=== PATIENT | female | born 1945 | race American Indian/Alaskan Native ===

== ENCOUNTER 2017-04-01 10:03 | Outpatient (CLI) | payer MEDICARE ==
--- NOTE | 2017-04-01 14:48 | Magnetic Resonance Report ---
MRI of brain: History: CVA. Technique: Multiplanar, multisequence images were obtained without contrast injection. Findings: 2 mm focal area of restricted diffusion noted in the anterior right basal ganglia with corresponding ADC findings suggestive acute/subacute ischemia. Posteriorly at the right basal ganglia chronic ischemic lacunar changes are noted. Chronic ischemic changes also noted in the left posterior temporal region. Periventricular areas of hyperintensity suggestive of small vessel ischemic changes. Small focus of Chronic ischemia midbrain. Impression: Small acute/subacute ischemic focus at right anterior basal ganglia. Additional findings as detailed above.
--- NOTE | 2017-04-01 14:52 | Magnetic Resonance Report ---
MRA of the brain: History: CVA. Technique: 3-D images obtained the post processing. Findings: The vessels of [place] appear widely patent. No evidence of aneurysm stenoses or dissection noted. No vascular malformation. There is occlusion or severe stenosis of 1 cm length left vertebral artery and the basilar artery appears unremarkable. noted of the right vertebral artery distal to the basilar artery.
--- NOTE | 2017-04-02 10:34 | Magnetic Resonance Report ---
MRA NECK WITHOUT CONTRAST: 04/01/17 11:00:00 CLINICAL: Stroke. COMPARISON:None. TECHNIQUE: Axial 3-D [id number] MR angiography with review of axial source images on a 1.5 Dionna magnet. FINDINGS: The bilateral common and internal carotid arteries are very tortuous but appear otherwise intact. Bilateral vertebral arteries are intact. The left vertebral artery is dominant. No high-grade stenoses or occlusions are detected. IMPRESSION: Extremely tortuous carotid arteries with no high grade stenosis or occlusion identified.
== END 2017-04-01 10:04 | disposition home or self-care (01) ==
LOC: MRI 10:03
PROVIDERS: ATTEND Psychiatry & Neurology Neurology
DX: I65.22 Occlusion and stenosis of left carotid artery (principal); I63.9 Cerebral infarction, unspecified; I77.1 Stricture of artery; I10 Essential (primary) hypertension; E78.00 Pure hypercholesterolemia, unspecified
CPT/HCPCS: 70544; 70547; 70551

== ENCOUNTER 2017-04-12 17:20 | Inpatient (IN) | payer MEDICARE ==
[2017-04-12] MEDS ORDERED: APRESOLINE ONE ×2 (18:37→22:34)
[2017-04-12] MEDS ORDERED: APRESOLINE IV ONE (18:41)
[2017-04-12 18:49] LABS: Hematocrit 34.4 % (30.3-42.9); Hemoglobin 11.6 gm/dl (10.1-14.3); Mean Corpuscular HGB Conc 34 % (30-34); Mean Corpuscular Hemoglobin 29 pg (28-32); Mean Corpuscular Volume 87 fl (79-97); Red Blood Count 3.94 M/mm3 (3.65-5.03); Red Cell Distribution Width 15.7 % (13.2-15.2)
[2017-04-12 18:50] LABS: Platelet Count 199 K/mm3 (140-440); White Blood Count 11.5 K/mm3 (4.5-11.0)
[2017-04-12 18:52] LABS: INR 0.94 (0.87-1.13); Partial Thromboplastin Time 24.6 Sec. (24.2-36.6)
[2017-04-12 19:29] LABS: Anion Gap 22 mmol/L; BUN/Creatinine Ratio 11.72; Blood Urea Nitrogen 34 mg/dL (7-17); Calcium 9.2 mg/dL (8.4-10.2); Carbon Dioxide 22 mmol/L (22-30); Chloride 99.5 mmol/L (98-107); Glucose 91 mg/dL (65-100); Potassium 4.2 mmol/L (3.6-5.0); Sodium 139 mmol/L (137-145)
--- NOTE | 2017-04-12 19:29 | Cat Scan Report ---
FINAL REPORT EXAM: CT HEAD/BRAIN WO CON HISTORY: neuro deficits \T\lt; 6hrs or sx present upon awakening TECHNIQUE: Standard unenhanced CT of the head at 5.0 millimeter axial increments PRIORS: None. FINDINGS: The ventricular system is normal in size and configuration. Low-density in the periventricular white matter is noted bilaterally. Several focal remote infarcts are present in the left parietal occipital junction, the left caudate nucleus, and the bilateral basal ganglia. There is no evidence for mass lesion, mass effect, midline shift, acute intracranial hemorrhage, or acute ischemia/ infarction. Visualized paranasal sinuses demonstrate air-fluid level in the sphenoid sinuses. IMPRESSION: No acute intracranial process noted. Evidence for small vessel ischemic changes and small remote infarcts bilaterally.
[2017-04-12 19:38] LABS: Basophils % (Manual) 0 % (0.0-1.8); Blastocytes % (Manual) 0 %
[2017-04-12 19:39] LABS: Anisocytosis 1+; Platelet Clumps 1+; Poikilocytosis 1+
[2017-04-12 19:40] LABS: Diff Status Complete; Platelet Estimate Consistent w Auto
[2017-04-12] MEDS ORDERED: PLAVIX PO ONE (20:34)
--- NOTE | 2017-04-12 20:39 | Emergency Department Report ---
HPI - General Chief Complaint: Neuro Symptoms/Deficit Time Seen by Provider: 04/12/17 20:24 - HPI HPI: Room 24 The patient is a 72-year-old female presenting with a chief complaint of numbness and right looks really weakness. The patient states that approximately 13:30 this afternoon she noticed numbness to the right side of her face and lips. The patient states she then went to sleep and awakened at approximately 15:002 noticed right lower extremity weakness. The patient states she needed family members and had to hold the wall in order to ambulate secondary to this right location and weakness. Sensation states she noticed some dysarthria earlier but it has improved. Patient also complained of numbness in the fingers of the right hand. Patient denies any upper extremity weakness. The patient states she was diagnosed with a TIA beginning of this month and had an outpatient workup which included an MRI and MRA Location: [see above] Duration: [see above] Quality: Numbness, weakness Severity: Moderate Modifying factors: [see above] Context: [see above] Mode of transportation: [not driving] ED Past Medical Hx - Past Medical History Previous Medical History?: Yes Hx Hypertension: Yes Hx Diabetes: Yes (NIDDM) Hx Renal Disease: Yes (chronic renal insufficiency) Additional medical history: TIA beginning of 2016 - Surgical History Past Surgical History?: Yes Additional Surgical History: x 3. left ankle. tonsillectomy - Family History Family history: no significant - Social History Smoking Status: Never Smoker Substance Use Type: None - Medications Home Medications: Home Medications Medication Instructions Recorded Confirmed Last Taken Type Clonidine HCl [Clonidine HCl] 0.2 mg PO BID 02/14/14 04/12/17 02/14/14 07:40 History Carvedilol [Coreg] 6.25 mg PO BID 04/12/17 04/12/17 Unknown History Furosemide [Lasix TAB] 40 mg PO QDAY 04/12/17 04/12/17 Unknown History Simvastatin [Zocor TAB] 40 mg PO QHS 04/12/17 04/12/17 Unknown History glipiZIDE [Glucotrol] 5 mg PO BID 04/12/17 04/12/17 Unknown History ED Review of Systems ROS: Stated complaint: RIGHT SIDED WEAKNESS Other details as noted in HPI Comment: All other systems reviewed and negative Constitutional: denies: chills, fever Eyes: denies: eye pain, eye discharge, vision change ENT: denies: ear pain, throat pain Respiratory: denies: cough, shortness of breath, wheezing Cardiovascular: denies: chest pain, palpitations Endocrine: no symptoms reported Gastrointestinal: denies: abdominal pain, nausea, diarrhea Genitourinary: denies: urgency, dysuria, discharge Musculoskeletal: denies: back pain, joint swelling, arthralgia Skin: denies: rash, lesions Neurological: weakness, numbness, abnormal gait. denies: headache Psychiatric: denies: anxiety, depression Hematological/Lymphatic: denies: easy bleeding, easy bruising Physical Exam - Physical Exam Vital Signs: Vital Signs 04/12/17 04/12/17 04/12/17 17:32 18:14 18:38 Pulse Rate 66 60 66 Respiratory 16 16 16 Rate Blood Pressure 200/110 220/116 Blood Pressure 204/105 [Right] O2 Sat by Pulse 98 100 100 Oximetry 04/12/17 04/12/17 04/12/17 18:56 19:00 19:16 Pulse Rate 79 75 74 Respiratory 14 23 24 Rate Blood Pressure 184/90 167/80 Blood Pressure 184/90 [Right] O2 Sat by Pulse 96 97 97 Oximetry 04/12/17 04/12/17 04/12/17 19:30 19:46 20:00 Pulse Rate 77 70 81 Respiratory 17 18 14 Rate Blood Pressure 167/80 166/88 220/116 Blood Pressure [Right] O2 Sat by Pulse 98 98 98 Oximetry 04/12/17 04/12/17 20:16 20:32 Pulse Rate 70 83 Respiratory 20 Rate Blood Pressure 166/88 Blood Pressure [Right] O2 Sat by Pulse 98 Oximetry Physical Exam: GENERAL: The patient is well-developed well-nourished female lying on stretcher not appearing to be in acute distress. [] HEENT: Normocephalic. Atraumatic. Extraocular motions are intact. Patient has moist mucous membranes. NECK: Supple. Trachea midline CHEST/LUNGS: There is no respiratory distress noted. HEART/CARDIOVASCULAR: Regular. There is no tachycardia. There is no gallop rub or murmur. ABDOMEN: Abdomen is soft, nontender. Patient has normal bowel sounds. There is no abdominal distention. SKIN: There is no rash. There is no edema. There is no diaphoresis. NEURO: The patient is awake, alert, and oriented. The patient is cooperative. Cranial nerves II through XII grossly intact with exception of decreased sensation on the right face in the V2, V3 distribution. Loans Consultant equal bilaterally , no pronator drift. Normal sensation bilateral lower extremities. Moves all extremities well. The patient has normal speech MUSCULOSKELETAL: There is no evidence of acute injury. ED Course Vital Signs 04/12/17 04/12/17 04/12/17 17:32 18:14 18:38 Pulse Rate 66 60 66 Respiratory 16 16 16 Rate Blood Pressure 200/110 220/116 Blood Pressure 204/105 [Right] O2 Sat by Pulse 98 100 100 Oximetry 04/12/17 04/12/17 04/12/17 18:56 19:00 19:16 Pulse Rate 79 75 74 Respiratory 14 23 24 Rate Blood Pressure 184/90 167/80 Blood Pressure 184/90 [Right] O2 Sat by Pulse 96 97 97 Oximetry 04/12/17 04/12/17 04/12/17 19:30 19:46 20:00 Pulse Rate 77 70 81 Respiratory 17 18 14 Rate Blood Pressure 167/80 166/88 220/116 Blood Pressure [Right] O2 Sat by Pulse 98 98 98 Oximetry 04/12/17 04/12/17 20:16 20:32 Pulse Rate 70 83 Respiratory 20 Rate Blood Pressure 166/88 Blood Pressure [Right] O2 Sat by Pulse 98 Oximetry ED Medical Decision Making - Lab Data Result diagrams: 04/12/17 18:23 04/12/17 18:23 Laboratory Tests 04/12/17 04/12/17 04/12/17 18:21 18:23 18:23 WBC 11.5 H RBC 3.94 Hgb 11.6 Hct 34.4 MCV 87 MCH 29 MCHC 34 RDW 15.7 H Plt Count 199 Add Manual Diff Complete Total Counted 100 Seg Neuts % (Manual) 60.0 Band Neutrophils % 0 Lymphocytes % (Manual) 34.0 Reactive Lymphs % (Man) 0 Monocytes % (Manual) 5.0 Eosinophils % (Manual) 1.0 Basophils % (Manual) 0 Metamyelocytes % 0 Myelocytes % 0 Promyelocytes % 0 Blast Cells % 0 Nucleated RBC % Not Reportable Seg Neutrophils # Man 6.9 Band Neutrophils # 0.0 Lymphocytes # (Manual) 3.9 Abs React Lymphs (Man) 0.0 Monocytes # (Manual) 0.6 Eosinophils # (Manual) 0.1 Basophils # (Manual) 0.0 Metamyelocytes # 0.0 Myelocytes # 0.0 Promyelocytes # 0.0 Blast Cells # 0.0 WBC Morphology Not Reportable Hypersegmented Neuts Not Reportable Hyposegmented Neuts Not Reportable Hypogranular Neuts Not Reportable Smudge Cells Not Reportable Toxic Granulation Not Reportable Toxic Vacuolation Not Reportable Dohle Bodies Not Reportable Pelger-Huet Anomaly Not Reportable Ralph Rods Not Reportable Platelet Estimate Consistent w auto Clumped Platelets 1+ Plt Clumps, EDTA Not Reportable Large Platelets Not Reportable Giant Platelets Not Reportable Platelet Satelliting Not Reportable Plt Morphology Comment Not Reportable RBC Morphology Not Reportable Dimorphic RBCs Not Reportable Polychromasia Not Reportable Hypochromasia Not Reportable Poikilocytosis 1+ Anisocytosis 1+ Microcytosis Not Reportable Macrocytosis Not Reportable Spherocytes Not Reportable Pappenheimer Bodies Not Reportable Sickle Cells Not Reportable Target Cells Not Reportable Tear Drop Cells Not Reportable Ovalocytes Not Reportable Helmet Cells Not Reportable Muniz-Homeworth Bodies Not Reportable [place] Rings Not Reportable [place] Cells Not Reportable Bite Cells Not Reportable Crenated Cell Not Reportable Elliptocytes Not Reportable Acanthocytes (Spur) Not Reportable Rouleaux Not Reportable Hemoglobin C Crystals Not Reportable Schistocytes Not Reportable Malaria parasites Not Reportable Zheng Bodies Not Reportable Hem Pathologist Commnt No PT 12.5 INR 0.94 APTT 24.6 Thrombin Time Sodium Potassium Chloride Carbon Dioxide Anion Gap BUN Creatinine Estimated GFR BUN/Creatinine Ratio Glucose POC Glucose 101 Calcium Troponin T 04/12/17 04/12/17 04/12/17 18:23 18:23 20:18 WBC RBC Hgb Hct MCV MCH MCHC RDW Plt Count Add Manual Diff Total Counted Seg Neuts % (Manual) Band Neutrophils % Lymphocytes % (Manual) Reactive Lymphs % (Man) Monocytes % (Manual) Eosinophils % (Manual) Basophils % (Manual) Metamyelocytes % Myelocytes % Promyelocytes % Blast Cells % Nucleated RBC % Seg Neutrophils # Man Band Neutrophils # Lymphocytes # (Manual) Abs React Lymphs (Man) Monocytes # (Manual) Eosinophils # (Manual) Basophils # (Manual) Metamyelocytes # Myelocytes # Promyelocytes # Blast Cells # WBC Morphology Hypersegmented Neuts Hyposegmented Neuts Hypogranular Neuts Smudge Cells Toxic Granulation Toxic Vacuolation Dohle Bodies Pelger-Huet Anomaly Ralph Rods Platelet Estimate Clumped Platelets Plt Clumps, EDTA Large Platelets Giant Platelets Platelet Satelliting Plt Morphology Comment RBC Morphology Dimorphic RBCs Polychromasia Hypochromasia Poikilocytosis Anisocytosis Microcytosis Macrocytosis Spherocytes Pappenheimer Bodies Sickle Cells Target Cells Tear Drop Cells Ovalocytes Helmet Cells Muniz-Homeworth Bodies [place] Rings [place] Cells Bite Cells Crenated Cell Elliptocytes Acanthocytes (Spur) Rouleaux Hemoglobin C Crystals Schistocytes Malaria parasites Zheng Bodies Hem Pathologist Commnt PT INR APTT Thrombin Time 17.1 Sodium 139 Potassium 4.2 Chloride 99.5 Carbon Dioxide 22 Anion Gap 22 BUN 34 H Creatinine 2.9 H Estimated GFR 19 BUN/Creatinine Ratio 11.72 Glucose 91 POC Glucose 99 Calcium 9.2 Troponin T < 0.010 - EKG Data -: EKG Interpreted by Me EKG shows normal: sinus rhythm Rate: bradycardia (55 bpm) - EKG Data When compared to previous EKG there are: previous EKG unavailable Interpretation: nonspecific ST-T wave rubi (T-wave inversion in leads 1, aVL, V4 , V5, V6) - Differential Diagnosis TIA, CVA Critical care attestation.: If time is entered above; I have spent that time in minutes in the direct care of this critically ill patient, excluding procedure time. ED Disposition Clinical Impression: Right facial numbness, TIA (transient ischemic attack), Renal insufficiency Disposition: DC09 OP ADMIT IP TO THIS HOSP Is pt being admited?: Yes Does the pt Need Aspirin: No (renal insufficiency) Condition: Stable Referrals: PRIMARY CARE, [Primary Care Provider] - 3-5 Days Time of Disposition: 20:40 (hospitalist paged)
[2017-04-12] MEDS ORDERED: TYLENOL PO PRN (22:08)
[2017-04-12] MEDS ORDERED: SODIUM CHLORIDE FLUSH SYRINGE 10 ML IV PRN (22:08)
[2017-04-12] MEDS ORDERED: DULCOLAX PR PRN (22:08)
[2017-04-12] MEDS ORDERED: ZOFRAN IV PRN (22:08)
[2017-04-12] MEDS ORDERED: MILK OF MAGNESIA PO PRN (22:08)
--- NOTE | 2017-04-12 22:33 | History and Physical Report ---
History of Present Illness Date of examination: 04/12/17 History of present illness: 72 year old woman with history of hypertension, diabetes, hyperlipidemia, same emergency room with complaints that the right side of the face was numb and her leg felt weak. Patient experienced dysarthria 2 weeks ago, she saw a neurologist who initiated a stroke workup, she obtain a MRI and MRA of the head and neck today which showed an acute versus subacute CVA. Patient states that her speech is improving Review Of Systems: Constitutional: no weight loss Ears, eyes, nose, mouth and throat: no nasal congestion, no nasal discharge, no sinus pressure, blurry vision, diplopia Neck: No neck pain or rigidity. Cardiovascular: chest pain, orthopnea, palpitations Respiratory: No shortness of breath, cough Gastrointestinal: abdominal pain, hematochezia Genitourinary : no dysuria, frequency , hematuria Musculoskeletal: no muscle ache Integumentary: no rash, no pruritis Neurological: + parathesias Endocrine: no cold or heat intolerance, no polyuria or polydipsia Hematologic/Lymphatic: no easy bruising, no easy bleeding, no gland swelling Allergic/Immunologic: no urticaria, no angioedema. PAST MEDICAL HISTORY:hypertension, diabetes, renal insufficiency, hyperlipidemia PAST SURGICAL HISTORY: 3, ankle, tonsillectomy FAMILY HISTORY:hypertension SOCIAL HISTORY: Denies alcohol, tobacco, drug Medications and Allergies Allergies Allergy/AdvReac Type Severity Reaction Status Date / Time No Known Allergies Allergy Verified 06/03/13 15:16 Home Medications Medication Instructions Recorded Confirmed Last Taken Type Clonidine HCl 0.2 mg PO BID 02/14/14 04/12/17 02/14/14 07:40 History Carvedilol [Coreg] 6.25 mg PO BID 04/12/17 04/12/17 Unknown History Furosemide [Lasix TAB] 40 mg PO QDAY 04/12/17 04/12/17 Unknown History glipiZIDE [Glucotrol] 5 mg PO BID 04/12/17 04/12/17 Unknown History Clopidogrel [Plavix] 75 mg PO QDAY #30 tablet 04/16/17 Unknown Rx Simvastatin [Zocor TAB] 40 mg PO QHS #30 tablet 04/16/17 Unknown Rx hydrALAZINE [Apresoline TAB] 50 mg PO Q8HR #90 tablet 04/16/17 Unknown Rx Active Meds: Active Medications Acetaminophen (Tylenol) 650 mg PO Q4H PRN PRN Reason: Pain, Mild (1-3) Bisacodyl (Dulcolax) 10 mg NE QDAY PRN PRN Reason: Constipation Enoxaparin Sodium (Lovenox) 30 mg SUB-Q QDAY ELIDA Hydralazine HCl (Apresoline) 5 mg IV Q6H PRN PRN Reason: Keep SBP between 160-185 mm Hg Magnesium Hydroxide (Milk Of Magnesia) 30 ml PO Q4H PRN PRN Reason: Constipation Ondansetron HCl (Zofran) 4 mg IV Q8H PRN PRN Reason: N/V unrelieved by Reglan Simvastatin (Zocor) 20 mg PO QHS ELIDA Sodium Chloride (Sodium Chloride Flush Syringe 10 Ml) 10 ml IV PRN PRN PRN Reason: LINE FLUSH Exam - Physical Exam Narrative exam: Gen. appearance: Patient lying in bed in no acute distress HEENT: Normocephalic/atraumatic, pupils equal round reactive to light, extra alkaline movement intact, no scleral icterus, no JVD or thyromegaly or nodule, neck is supple, mucous membrane moist, no erythema or exudate Heart: S1-S2, regular rate and rhythm Lungs: Clear to auscultation bilateral breathing comfortable Abdomen: Positive bowel sounds, nontender, nondistended, no organomegaly Extremities: No edema, cyanosis, clubbing Neuro:: Oriented 3 , cranial nerves II-12 intact, speech slurred, left lower extremity 4/5 Skin: No rash, nodules, warm dry - Constitutional Vitals: Temp Pulse Resp BP Pulse Ox 68 15 222/111 98 04/12/17 21:16 04/12/17 21:16 04/12/17 21:16 04/12/17 21:16 Results - Labs CBC & Chem 7: 04/16/17 04:12 04/16/17 04:12 Labs: Abnormal lab results 04/12/17 04/12/17 Range/Units 18:23 18:23 WBC 11.5 H (4.5-11.0) K/mm3 RDW 15.7 H (13.2-15.2) % BUN 34 H (7-17) mg/dL Creatinine 2.9 H (0.7-1.2) mg/dL - Imaging and Cardiology MRI - head: report reviewed Assessment and Plan MRA/MRI HEAD reviwed Assessment Stroke in evolution Hypertension Diabetes type 2 kidney disease, ? acute Hyperlipidemia Plan Admit to medicine Obtain echocardiogram, consult neurology Due to swallow screen, neurochecks Start Plavix, continue statin IV hydralazine for blood pressure control Start IV fluids, monitor kidney function Check fingersticks and initiate insulin sliding scale Consult physical, occupational and speech therapy DVT prophylaxis
[2017-04-12] MEDS: APRESOLINE IV PRN (22:37)
[2017-04-13] MEDS: NACL 0.45% 1000 ML 1,000 ML IV SCH ×2 (03:30→17:35)
[2017-04-13] MEDS: APRESOLINE IV PRN ×2 (05:10→09:00)
[2017-04-13] MEDS: LOVENOX SUB-Q SCH (09:01)
[2017-04-13] MEDS: PLAVIX PO SCH (09:01)
--- NOTE | 2017-04-13 10:55 | Consultation ---
History of Present Illness - Reason for Consult Consult date: 04/13/17 stroke - History of Present Illness see the extensive dictated note on this patient... she has had multiple strokes a/w lacunae in past and has HTN / Diabetes and moderate renal failure advise lower cholesterol / Tx HTN take ASA MRI etc pending Thanks Medications and Allergies Allergies Allergy/AdvReac Type Severity Reaction Status Date / Time No Known Allergies Allergy Verified 06/03/13 15:16 Home Medications Medication Instructions Recorded Confirmed Last Taken Type Clonidine HCl [Clonidine HCl] 0.2 mg PO BID 02/14/14 04/12/17 02/14/14 07:40 History Carvedilol [Coreg] 6.25 mg PO BID 04/12/17 04/12/17 Unknown History Furosemide [Lasix TAB] 40 mg PO QDAY 04/12/17 04/12/17 Unknown History Simvastatin [Zocor TAB] 40 mg PO QHS 04/12/17 04/12/17 Unknown History glipiZIDE [Glucotrol] 5 mg PO BID 04/12/17 04/12/17 Unknown History Active Meds: Active Medications Acetaminophen (Tylenol) 650 mg PO Q4H PRN PRN Reason: Pain, Mild (1-3) Bisacodyl (Dulcolax) 10 mg [place] QDAY PRN PRN Reason: Constipation Carvedilol (Coreg) 6.25 mg PO BID [facility] Clonidine HCl (Catapres) 0.2 mg PO BID [facility] Clopidogrel Bisulfate (Plavix) 75 mg PO QDAY [facility] Last Admin: 04/13/17 09:01 Dose: 75 mg Enoxaparin Sodium (Lovenox) 30 mg SUB-Q QDAY [facility] Last Admin: 04/13/17 09:01 Dose: 30 mg Furosemide (Lasix) 40 mg PO QDAY ELIDA Glipizide (Glucotrol) 5 mg PO BID ELIDA Hydralazine HCl (Apresoline) 5 mg IV Q6H PRN PRN Reason: Keep SBP between 160-185 mm Hg Last Admin: 04/13/17 05:10 Dose: 5 mg Sodium Chloride (Nacl 0.45% 1000 Ml) 1,000 mls @ 75 mls/hr IV DIRECT [facility] Last Admin: 04/13/17 03:30 Dose: 75 mls/hr Influenza Virus Vaccine Quadrival (Fluarix Quad [id number](36 Mos+)) 0.5 ml IM .ONCE ONE Stop: 04/13/17 12:01 Magnesium Hydroxide (Milk Of Magnesia) 30 ml PO Q4H PRN PRN Reason: Constipation Ondansetron HCl (Zofran) 4 mg IV Q8H PRN PRN Reason: N/V unrelieved by Reglan Pneumococcal Polyvalent Vaccine (Pneumovax 23) 0.5 ml IM .ONCE ONE Stop: 04/13/17 12:01 Simvastatin (Zocor) 20 mg PO QHS ELIDA Sodium Chloride (Sodium Chloride Flush Syringe 10 Ml) 10 ml IV PRN PRN PRN Reason: LINE FLUSH Exam - Constitutional Vitals: Temp Pulse Resp BP Pulse Ox 97.7 F 78 20 222/111 99 04/13/17 08:26 04/13/17 08:26 04/13/17 08:26 04/13/17 08:26 04/13/17 10:05 Results - Labs CBC & Chem 7: 04/12/17 18:23 04/12/17 18:23 Labs: Abnormal lab results 04/13/17 Range/Units 05:37 HDL Cholesterol 60 H (40-59) mg/dL
[2017-04-13] MEDS: CATAPRES PO SCH ×2 (11:36→22:03)
[2017-04-13] MEDS: COREG PO SCH ×2 (11:36→22:06)
[2017-04-13] MEDS: LASIX PO SCH (11:37)
[2017-04-13] MEDS: GLUCOTROL PO SCH ×2 (11:37→22:03)
[2017-04-13] MEDS ORDERED: Fluarix Quad 2017-2018(36 MOS+) IM ONE (12:00)
[2017-04-13] MEDS ORDERED: PNEUMOVAX 23 IM ONE (12:00)
--- NOTE | 2017-04-13 19:23 | Progress Note ---
Assessment and Plan Assessment and plan: --Acute CVA; with left-sided weakness Not a candidate for TPA Aspirin, statin, supportive care, neurology evaluation Physical therapy occupational therapy, rehabilitation, speech therapy --Hypertension; closely monitor Maintain systolic blood pressures per stroke protocol When necessary medications --Acute versus acute on chronic kidney disease No previous creatinine level available, gentle hydration, close to monitor renal function, avoid nephrotoxic medications Consider nephrology evaluation if needed --Dyslipidemia; lipid-lowering medications. Low-cholesterol diet --Mild dysphagia, therapist recommended soft diet advised modified barium swallow a.m. --Normoactive prophylaxis with Lovenox --Discharge planning per case management, possible home with home health versus placement Closely monitor the patient and adjust management as needed Plan of care discussed with the patient and her nurse History Interval history: Patient seen and examined this morning, medical records reviewed Admitted with acute CVA, on stroke protocol The patient feels slightly better Speech therapist has evaluated the patient Patient has no new complaints Hospitalist Physical - Constitutional Vitals: Temp Pulse Resp BP Pulse Ox 98.5 F 65 20 154/68 99 04/13/17 18:03 04/13/17 18:03 04/13/17 18:03 04/13/17 18:03 04/13/17 11:31 General appearance: Present: no acute distress, well-nourished - EENT Eyes: Present: PERRL, EOM intact - Neck Neck: Present: supple, normal ROM - Respiratory Respiratory effort: normal Respiratory: bilateral: diminished, negative: rales, rhonchi, wheezing - Cardiovascular Rhythm: regular Heart Sounds: Present: S1 & S2 - Extremities Extremities: no ischemia, No edema - Abdominal General gastrointestinal: soft, non-tender, non-distended, normal bowel sounds - Integumentary Integumentary: Present: clear, warm - Psychiatric Psychiatric: appropriate mood/affect, cooperative - Neurologic Neurologic: other (left-sided weakness) Results - Labs CBC & Chem 7: 04/12/17 18:23 04/12/17 18:23 Labs: Laboratory Last Values WBC 11.5 K/mm3 (4.5-11.0) H 04/12/17 18:23 RBC 3.94 M/mm3 (3.65-5.03) 04/12/17 18:23 Hgb 11.6 gm/dl (10.1-14.3) 04/12/17 18:23 Hct 34.4 % (30.3-42.9) 04/12/17 18:23 MCV 87 fl (79-97) 04/12/17 18:23 MCH 29 pg (28-32) 04/12/17 18:23 MCHC 34 % (30-34) 04/12/17 18:23 RDW 15.7 % (13.2-15.2) H 04/12/17 18:23 Plt Count 199 K/mm3 (140-440) 04/12/17 18:23 Add Manual Diff Complete 04/12/17 18:23 Total Counted 100 04/12/17 18:23 Seg Neuts % (Manual) 60.0 % (40.0-70.0) 04/12/17 18:23 Band Neutrophils % 0 % 04/12/17 18:23 Lymphocytes % (Manual) 34.0 % (13.4-35.0) 04/12/17 18:23 Reactive Lymphs % (Man) 0 % 04/12/17 18:23 Monocytes % (Manual) 5.0 % (0.0-7.3) 04/12/17 18:23 Eosinophils % (Manual) 1.0 % (0.0-4.3) 04/12/17 18:23 Basophils % (Manual) 0 % (0.0-1.8) 04/12/17 18:23 Metamyelocytes % 0 % 04/12/17 18:23 Myelocytes % 0 % 04/12/17 18:23 Promyelocytes % 0 % 04/12/17 18:23 Blast Cells % 0 % 04/12/17 18:23 Nucleated RBC % Not Reportable 04/12/17 18:23 Seg Neutrophils # Man 6.9 K/mm3 (1.8-7.7) 04/12/17 18:23 Band Neutrophils # 0.0 K/mm3 04/12/17 18:23 Lymphocytes # (Manual) 3.9 K/mm3 (1.2-5.4) 04/12/17 18:23 Abs React Lymphs (Man) 0.0 K/mm3 04/12/17 18:23 Monocytes # (Manual) 0.6 K/mm3 (0.0-0.8) 04/12/17 18:23 Eosinophils # (Manual) 0.1 K/mm3 (0.0-0.4) 04/12/17 18:23 Basophils # (Manual) 0.0 K/mm3 (0.0-0.1) 04/12/17 18:23 Metamyelocytes # 0.0 K/mm3 04/12/17 18:23 Myelocytes # 0.0 K/mm3 04/12/17 18:23 Promyelocytes # 0.0 K/mm3 04/12/17 18:23 Blast Cells # 0.0 K/mm3 04/12/17 18:23 WBC Morphology Not Reportable 04/12/17 18:23 Hypersegmented Neuts Not Reportable 04/12/17 18:23 Hyposegmented Neuts Not Reportable 04/12/17 18:23 Hypogranular Neuts Not Reportable 04/12/17 18:23 Smudge Cells Not Reportable 04/12/17 18:23 Toxic Granulation Not Reportable 04/12/17 18:23 Toxic Vacuolation Not Reportable 04/12/17 18:23 Dohle Bodies Not Reportable 04/12/17 18:23 Pelger-Huet Anomaly Not Reportable 04/12/17 18:23 Ralph Rods Not Reportable 04/12/17 18:23 Platelet Estimate Consistent w auto 04/12/17 18:23 Clumped Platelets 1+ 04/12/17 18:23 Plt Clumps, EDTA Not Reportable 04/12/17 18:23 Large Platelets Not Reportable 04/12/17 18:23 Giant Platelets Not Reportable 04/12/17 18:23 Platelet Satelliting Not Reportable 04/12/17 18:23 Plt Morphology Comment Not Reportable 04/12/17 18:23 RBC Morphology Not Reportable 04/12/17 18:23 Dimorphic RBCs Not Reportable 04/12/17 18:23 Polychromasia Not Reportable 04/12/17 18:23 Hypochromasia Not Reportable 04/12/17 18:23 Poikilocytosis 1+ 04/12/17 18:23 Anisocytosis 1+ 04/12/17 18:23 Microcytosis Not Reportable 04/12/17 18:23 Macrocytosis Not Reportable 04/12/17 18:23 Spherocytes Not Reportable 04/12/17 18:23 Pappenheimer Bodies Not Reportable 04/12/17 18:23 Sickle Cells Not Reportable 04/12/17 18:23 Target Cells Not Reportable 04/12/17 18:23 Tear Drop Cells Not Reportable 04/12/17 18:23 Ovalocytes Not Reportable 04/12/17 18:23 Helmet Cells Not Reportable 04/12/17 18:23 [place] Bodies Not Reportable 04/12/17 18:23 [place] Rings Not Reportable 04/12/17 18:23 [place] Cells Not Reportable 04/12/17 18:23 Bite Cells Not Reportable 04/12/17 18:23 Crenated Cell Not Reportable 04/12/17 18:23 Elliptocytes Not Reportable 04/12/17 18:23 Acanthocytes (Spur) Not Reportable 04/12/17 18:23 Rouleaux Not Reportable 04/12/17 18:23 Hemoglobin C Crystals Not Reportable 04/12/17 18:23 Schistocytes Not Reportable 04/12/17 18:23 Malaria parasites Not Reportable 04/12/17 18:23 Zheng Bodies Not Reportable 04/12/17 18:23 Hem Pathologist Commnt No 04/12/17 18:23 PT 12.5 Sec. (12.2-14.9) 04/12/17 18:23 INR 0.94 (0.87-1.13) 04/12/17 18:23 APTT 24.6 Sec. (24.2-36.6) 04/12/17 18:23 Thrombin Time 17.1 Sec. (15.1-19.6) 04/12/17 18:23 Sodium 139 mmol/L (137-145) 04/12/17 18:23 Potassium 4.2 mmol/L (3.6-5.0) 04/12/17 18:23 Chloride 99.5 mmol/L (98-107) 04/12/17 18:23 Carbon Dioxide 22 mmol/L (22-30) 04/12/17 18:23 Anion Gap 22 mmol/L 04/12/17 18:23 BUN 34 mg/dL (7-17) H 04/12/17 18:23 Creatinine 2.9 mg/dL (0.7-1.2) H 04/12/17 18:23 Estimated GFR 19 ml/min 04/12/17 18:23 BUN/Creatinine Ratio 11.72 % 04/12/17 18:23 Glucose 91 mg/dL (65-100) 04/12/17 18:23 POC Glucose 99 (70-105) 04/12/17 20:18 Calcium 9.2 mg/dL (8.4-10.2) 04/12/17 18:23 Troponin T < 0.010 ng/mL (0.00-0.029) 04/12/17 18:23 Triglycerides 133 mg/dL (2-149) 04/13/17 05:37 Cholesterol 177 mg/dL (50-199) 04/13/17 05:37 LDL Cholesterol Direct 91 mg/dL (50-130) 04/13/17 05:37 HDL Cholesterol 60 mg/dL (40-59) H 04/13/17 05:37 Cholesterol/HDL Ratio 2.95 % 04/13/17 05:37
[2017-04-13] MEDS: ZOCOR PO SCH (22:06)
[2017-04-13] MEDS: NOVOLOG SUB-Q SCH (22:07)
--- NOTE | 2017-04-14 02:57 | Consultation ---
HISTORY OF PRESENT ILLNESS: This is a 72-year-old black female that is admitted to [facility], [place]. She was admitted via the Emergency Room for evaluation of right-sided weakness of the face and arm and slurring of speech. She according to her history has been under treatment for TIAs. She had a TIA about 2 weeks ago, talked to her veterinarian assistant and was being treated for history of renal insufficiency and also has independent risk factors of hypertension, diabetes and has been present since 1999 previously. The patient had difficulty with walking. Her face was numb. Her arm is numb. She denied having a headache. She got somewhat better, and subsequent to that, her blood pressure on presentation to the Emergency Room was 166/88, it was elevated and she subsequently had a CT scan of the head obtained to assess her stroke-like symptoms and there were no acute abnormalities. There were small vessel ischemic changes and small remote lacunar infarcts present bilaterally within the left parietal lobe, within the left caudate nucleus and bilateral basal ganglia. Other pertinent finding was that the patient had a hematocrit of 34, white blood count of 11,500. Her sodium was 139. Her creatinine was 2.9, BUN was 34 and her HDL cholesterol was elevated at 60. ALLERGIES: The patient has no known allergies. SOCIAL HISTORY: Denies smoking, denies drinking. FAMILY HISTORY: Positive for hypertension, diabetes. PHYSICAL EXAMINATION: VITAL SIGNS: Her blood pressure to be quite elevated at 222/111, pulse rate is 78, temperature is 97 degrees. HEENT: Ocular movements are full. NEUROLOGIC: Speech is markedly dysarthric, but this is more dysarthric rather than a aphasic type of speech disturbance. She has hypesthesia, pinprick and light touch of the right face and right arm, but not at the leg. She has increased use of both right and left legs. Her strength is actually quite good. 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 Left arm is normal. She is fully oriented, follows all questions, does not have any visual field cuts. IMPRESSION: All evidence would suggest that this is a deep white matter ischemic infarct related to known risk factors of renal disease, hypertension, hypercholesterolemia and diabetes and she has had multiple infarcts in the past. She was not a TPA candidate. On admission, her NIH stroke scale is 4 at this point Plan is to get a carotid ultrasound and echocardiogram to make sure she does not have an embolization. We will check MRA and MRI. At this point, the patient is neurologically stable, seems to be improving well. Blood pressure control issues are eminent. JOB# [id number] BEREKET/NTS
[2017-04-14] MEDS: APRESOLINE IV PRN (05:48)
[2017-04-14] MEDS: NACL 0.45% 1000 ML 1,000 ML IV SCH (05:53)
[2017-04-14 06:43] LABS: BUN/Creatinine Ratio 12.5; Chloride 100.1 mmol/L (98-107); Magnesium 2.3 mg/dL (1.7-2.3); Potassium 4.5 mmol/L (3.6-5.0)
[2017-04-14] MEDS: NOVOLOG SUB-Q SCH ×4 (08:00→21:57)
[2017-04-14] MEDS ORDERED: APRESOLINE IV PRN (09:00)
[2017-04-14] MEDS: PLAVIX PO SCH (11:37)
[2017-04-14] MEDS: LOVENOX SUB-Q SCH (11:37)
[2017-04-14] MEDS: GLUCOTROL PO SCH ×2 (11:38→21:27)
[2017-04-14] MEDS: COREG PO SCH ×2 (11:38→23:00)
[2017-04-14] MEDS: LASIX PO SCH (11:38)
[2017-04-14] MEDS: CATAPRES PO SCH ×2 (11:38→21:27)
--- NOTE | 2017-04-14 16:00 | Progress Note ---
Assessment and Plan Assessment and plan: --Acute CVA; with left-sided weakness Not a candidate for TPA, continue Aspirin, statin, supportive care, neurology evaluation Physical therapy occupational therapy, rehabilitation, speech therapy --Hypertension; closely monitor Maintain systolic blood pressures per stroke protocol When necessary medications --Acute versus acute on chronic kidney disease No previous creatinine level available, gentle hydration, close to monitor renal function, avoid nephrotoxic medications Consider nephrology evaluation if needed --Dyslipidemia; lipid-lowering medications. Low-cholesterol diet --Mild dysphagia, therapist recommended soft diet advised modified barium swallow a.m. --Normoactive prophylaxis with Lovenox --Discharge planning per case management, possible home with home health versus placement Closely monitor the patient and adjust management as needed Plan of care discussed with the patient and her nurse History Interval history: Patient seen and examined Patient feels better no new complaints Receiving physical therapy occupational therapy Hospitalist Physical - Constitutional Vitals: Temp Pulse Resp BP Pulse Ox 99.5 F 68 20 221/95 97 04/14/17 04:40 04/14/17 05:48 04/14/17 04:40 04/14/17 05:48 04/14/17 04:40 General appearance: Present: no acute distress, well-nourished - EENT Eyes: Present: PERRL, EOM intact - Neck Neck: Present: supple, normal ROM - Respiratory Respiratory effort: normal Respiratory: negative: rales, rhonchi, wheezing - Cardiovascular Rhythm: regular Heart Sounds: Present: S1 & S2 - Extremities Extremities: no ischemia, No edema - Abdominal General gastrointestinal: soft, non-tender, non-distended, normal bowel sounds - Integumentary Integumentary: Present: clear, warm - Psychiatric Psychiatric: appropriate mood/affect, cooperative - Neurologic Neurologic: other (CVA with Lt weakness) Results - Labs CBC & Chem 7: 04/12/17 18:23 04/14/17 05:29 Labs: Laboratory Last Values WBC 11.5 K/mm3 (4.5-11.0) H 04/12/17 18:23 RBC 3.94 M/mm3 (3.65-5.03) 04/12/17 18:23 Hgb 11.6 gm/dl (10.1-14.3) 04/12/17 18:23 Hct 34.4 % (30.3-42.9) 04/12/17 18:23 MCV 87 fl (79-97) 04/12/17 18:23 MCH 29 pg (28-32) 04/12/17 18:23 MCHC 34 % (30-34) 04/12/17 18:23 RDW 15.7 % (13.2-15.2) H 04/12/17 18:23 Plt Count 199 K/mm3 (140-440) 04/12/17 18:23 Add Manual Diff Complete 04/12/17 18:23 Total Counted 100 04/12/17 18:23 Seg Neuts % (Manual) 60.0 % (40.0-70.0) 04/12/17 18:23 Band Neutrophils % 0 % 04/12/17 18:23 Lymphocytes % (Manual) 34.0 % (13.4-35.0) 04/12/17 18:23 Reactive Lymphs % (Man) 0 % 04/12/17 18:23 Monocytes % (Manual) 5.0 % (0.0-7.3) 04/12/17 18:23 Eosinophils % (Manual) 1.0 % (0.0-4.3) 04/12/17 18:23 Basophils % (Manual) 0 % (0.0-1.8) 04/12/17 18:23 Metamyelocytes % 0 % 04/12/17 18:23 Myelocytes % 0 % 04/12/17 18:23 Promyelocytes % 0 % 04/12/17 18:23 Blast Cells % 0 % 04/12/17 18:23 Nucleated RBC % Not Reportable 04/12/17 18:23 Seg Neutrophils # Man 6.9 K/mm3 (1.8-7.7) 04/12/17 18:23 Band Neutrophils # 0.0 K/mm3 04/12/17 18:23 Lymphocytes # (Manual) 3.9 K/mm3 (1.2-5.4) 04/12/17 18:23 Abs React Lymphs (Man) 0.0 K/mm3 04/12/17 18:23 Monocytes # (Manual) 0.6 K/mm3 (0.0-0.8) 04/12/17 18:23 Eosinophils # (Manual) 0.1 K/mm3 (0.0-0.4) 04/12/17 18:23 Basophils # (Manual) 0.0 K/mm3 (0.0-0.1) 04/12/17 18:23 Metamyelocytes # 0.0 K/mm3 04/12/17 18:23 Myelocytes # 0.0 K/mm3 04/12/17 18:23 Promyelocytes # 0.0 K/mm3 04/12/17 18:23 Blast Cells # 0.0 K/mm3 04/12/17 18:23 WBC Morphology Not Reportable 04/12/17 18:23 Hypersegmented Neuts Not Reportable 04/12/17 18:23 Hyposegmented Neuts Not Reportable 04/12/17 18:23 Hypogranular Neuts Not Reportable 04/12/17 18:23 Smudge Cells Not Reportable 04/12/17 18:23 Toxic Granulation Not Reportable 04/12/17 18:23 Toxic Vacuolation Not Reportable 04/12/17 18:23 Dohle Bodies Not Reportable 04/12/17 18:23 Pelger-Huet Anomaly Not Reportable 04/12/17 18:23 Ralph Rods Not Reportable 04/12/17 18:23 Platelet Estimate Consistent w auto 04/12/17 18:23 Clumped Platelets 1+ 04/12/17 18:23 Plt Clumps, EDTA Not Reportable 04/12/17 18:23 Large Platelets Not Reportable 04/12/17 18:23 Giant Platelets Not Reportable 04/12/17 18:23 Platelet Satelliting Not Reportable 04/12/17 18:23 Plt Morphology Comment Not Reportable 04/12/17 18:23 RBC Morphology Not Reportable 04/12/17 18:23 Dimorphic RBCs Not Reportable 04/12/17 18:23 Polychromasia Not Reportable 04/12/17 18:23 Hypochromasia Not Reportable 04/12/17 18:23 Poikilocytosis 1+ 04/12/17 18:23 Anisocytosis 1+ 04/12/17 18:23 Microcytosis Not Reportable 04/12/17 18:23 Macrocytosis Not Reportable 04/12/17 18:23 Spherocytes Not Reportable 04/12/17 18:23 Pappenheimer Bodies Not Reportable 04/12/17 18:23 Sickle Cells Not Reportable 04/12/17 18:23 Target Cells Not Reportable 04/12/17 18:23 Tear Drop Cells Not Reportable 04/12/17 18:23 Ovalocytes Not Reportable 04/12/17 18:23 Helmet Cells Not Reportable 04/12/17 18:23 [place] Bodies Not Reportable 04/12/17 18:23 [place] Rings Not Reportable 04/12/17 18:23 [place] Cells Not Reportable 04/12/17 18:23 Bite Cells Not Reportable 04/12/17 18:23 Crenated Cell Not Reportable 04/12/17 18:23 Elliptocytes Not Reportable 04/12/17 18:23 Acanthocytes (Spur) Not Reportable 04/12/17 18:23 Rouleaux Not Reportable 04/12/17 18:23 Hemoglobin C Crystals Not Reportable 04/12/17 18:23 Schistocytes Not Reportable 04/12/17 18:23 Malaria parasites Not Reportable 04/12/17 18:23 Zheng Bodies Not Reportable 04/12/17 18:23 Hem Pathologist Commnt No 04/12/17 18:23 PT 12.5 Sec. (12.2-14.9) 04/12/17 18:23 INR 0.94 (0.87-1.13) 04/12/17 18:23 APTT 24.6 Sec. (24.2-36.6) 04/12/17 18:23 Thrombin Time 17.1 Sec. (15.1-19.6) 04/12/17 18:23 Sodium 141 mmol/L (137-145) 04/14/17 05:29 Potassium 4.5 mmol/L (3.6-5.0) 04/14/17 05:29 Chloride 100.1 mmol/L (98-107) 04/14/17 05:29 Carbon Dioxide 28 mmol/L (22-30) 04/14/17 05:29 Anion Gap 17 mmol/L 04/14/17 05:29 BUN 35 mg/dL (7-17) H 04/14/17 05:29 Creatinine 2.8 mg/dL (0.7-1.2) H 04/14/17 05:29 Estimated GFR 20 ml/min 04/14/17 05:29 BUN/Creatinine Ratio 12.50 % 04/14/17 05:29 Glucose 100 mg/dL (65-100) 04/14/17 05:29 POC Glucose 93 (70-105) 04/13/17 21:28 Calcium 9.0 mg/dL (8.4-10.2) 04/14/17 05:29 Magnesium 2.30 mg/dL (1.7-2.3) 04/14/17 05:29 Troponin T < 0.010 ng/mL (0.00-0.029) 04/12/17 18:23 Triglycerides 133 mg/dL (2-149) 04/13/17 05:37 Cholesterol 177 mg/dL (50-199) 04/13/17 05:37 LDL Cholesterol Direct 91 mg/dL (50-130) 04/13/17 05:37 HDL Cholesterol 60 mg/dL (40-59) H 04/13/17 05:37 Cholesterol/HDL Ratio 2.95 % 04/13/17 05:37
[2017-04-14] MEDS ORDERED: COREG PO SCH (16:02)
--- NOTE | 2017-04-14 16:39 | Fluoroscopy Report ---
MODIFIED BARIUM SWALLOW History: dysphagia. Findings: Video radiography was provided by the radiologist for speech therapy to assess the swallowing mechanism. Please refer to the formal report by speech therapy. Impression: Successful modified barium swallow.
[2017-04-14] MEDS: APRESOLINE PO SCH ×2 (17:18→23:00)
--- NOTE | 2017-04-14 17:32 | Consultation ---
History of Present Illness - Reason for Consult Consult date: 04/14/17 chronic renal failure - History of Present Illness Mrs. Díaz is a 72 year old woman with stage IV CKD and hypertension the ED with history of right facial numbness and leg weakness and 2 week hx of dysarthria. An MRI/MRA was obtained appx 2 weeks ago and was notable for acute/ subacute ischemic focus of right anterior basal ganglia and 1 cm length occlusion/severe stenosis right vertebral artery. She has been admitted for further details. Past History Past Medical History: diabetes, hypertension, hyperlipidemia, renal failure ( stage IV CKD), other (Gout) Past Surgical History: No surgical history Social history: no significant social history Family history: no significant family history Medications and Allergies Allergies Allergy/AdvReac Type Severity Reaction Status Date / Time No Known Allergies Allergy Verified 06/03/13 15:16 Home Medications Medication Instructions Recorded Confirmed Last Taken Type Clonidine HCl [Clonidine HCl] 0.2 mg PO BID 02/14/14 04/12/17 02/14/14 07:40 History Carvedilol [Coreg] 6.25 mg PO BID 04/12/17 04/12/17 Unknown History Furosemide [Lasix TAB] 40 mg PO QDAY 04/12/17 04/12/17 Unknown History Simvastatin [Zocor TAB] 40 mg PO QHS 04/12/17 04/12/17 Unknown History glipiZIDE [Glucotrol] 5 mg PO BID 04/12/17 04/12/17 Unknown History Active Meds: Active Medications Acetaminophen (Tylenol) 650 mg PO Q4H PRN PRN Reason: Pain, Mild (1-3) Bisacodyl (Dulcolax) 10 mg [place] QDAY PRN PRN Reason: Constipation Carvedilol (Coreg) 12.5 mg PO BID [facility] Clonidine HCl (Catapres) 0.2 mg PO TID [facility] Clopidogrel Bisulfate (Plavix) 75 mg PO QDAY [facility] Last Admin: 04/14/17 11:37 Dose: 75 mg Enoxaparin Sodium (Lovenox) 30 mg SUB-Q QDAY [facility] Last Admin: 04/14/17 11:37 Dose: 30 mg Furosemide (Lasix) 40 mg PO QDAY [facility] Last Admin: 04/14/17 11:38 Dose: 40 mg Glipizide (Glucotrol) 5 mg PO BID [facility] Last Admin: 04/14/17 11:38 Dose: 5 mg Hydralazine HCl (Apresoline) 10 mg IV Q4H PRN PRN Reason: Hypertension Hydralazine HCl (Apresoline) 50 mg PO Q8HR [facility] Last Admin: 04/14/17 17:18 Dose: 50 mg Sodium Chloride (Nacl 0.45% 1000 Ml) 1,000 mls @ 75 mls/hr IV DIRECT [facility] Last Admin: 04/14/17 05:53 Dose: 75 mls/hr Insulin Aspart (Novolog) 0 units SUB-Q ACHS ELIDA PRN Reason: Protocol Last Admin: 04/14/17 16:51 Dose: Not Given Magnesium Hydroxide (Milk Of Magnesia) 30 ml PO Q4H PRN PRN Reason: Constipation Ondansetron HCl (Zofran) 4 mg IV Q8H PRN PRN Reason: N/V unrelieved by Reglan Simvastatin (Zocor) 20 mg PO QHS [facility] Last Admin: 04/13/17 22:06 Dose: 20 mg Sodium Chloride (Sodium Chloride Flush Syringe 10 Ml) 10 ml IV PRN PRN PRN Reason: LINE FLUSH Review of Systems ROS unobtainable: due to mental status Exam - Vital Signs Vital signs: Vital Signs Pulse Resp BP Pulse Ox 66 16 200/110 98 04/12/17 17:32 04/12/17 17:32 04/12/17 17:32 04/12/17 17:32 - General Appearance General appearance: well-developed EENT: ATNC, other (poor dentition) Respiratory: Clear to Ascultation Heart: regular, S1S2 Gastrointestinal: Present: normal. Absent: tenderness, distended Neurologic: other (dysarthria) Psychiatric: cooperative Results - Lab Results 04/12/17 18:23 04/14/17 05:29 Most recent lab results Calcium 9.0 mg/dL (8.4-10.2) 04/14/17 05:29 Magnesium 2.30 mg/dL (1.7-2.3) 04/14/17 05:29 Assessment and Plan Impression: * Stage IV chronic kidney disease --Baseline SCr 2.3-2.5mg/dL * CVA * Hypertension * Type II diabetes mellitus Plan: * Continue current management * Neuro work up in progress * Continue antiHTN medications - note recent addition of Clonidine and Coreg * Dose medications for renal function * Avoid potential nephrotoxins
[2017-04-14] MEDS: ZOCOR PO SCH (21:27)
[2017-04-15] MEDS: APRESOLINE PO SCH ×3 (05:53→22:17)
[2017-04-15] MEDS: NACL 0.45% 1000 ML 1,000 ML IV SCH (06:37)
[2017-04-15] MEDS: NOVOLOG SUB-Q SCH ×4 (08:30→22:16)
[2017-04-15 08:34] LABS: BUN/Creatinine Ratio 12.64; Calcium 8.5 mg/dL (8.4-10.2); Chloride 100.8 mmol/L (98-107); Potassium 3.9 mmol/L (3.6-5.0)
[2017-04-15] MEDS: CATAPRES PO SCH ×3 (08:35→20:37)
[2017-04-15] MEDS: PLAVIX PO SCH (10:02)
[2017-04-15] MEDS: GLUCOTROL PO SCH ×2 (10:06→22:16)
[2017-04-15] MEDS: COREG PO SCH ×2 (10:07→22:16)
[2017-04-15] MEDS: LASIX PO SCH (10:08)
[2017-04-15] MEDS: LOVENOX SUB-Q SCH (10:08)
--- NOTE | 2017-04-15 10:10 | Progress Note ---
Assessment and Plan Assessment and plan: --Acute CVA; with left-sided weakness Not a candidate for TPA, continue Aspirin, statin, supportive care, neurology evaluation Physical therapy occupational therapy, rehabilitation, speech therapy --Hypertension; closely monitor Maintain systolic blood pressures per stroke protocol When necessary medications --Acute versus acute on chronic kidney disease No previous creatinine level available, gentle hydration, close to monitor renal function, avoid nephrotoxic medications Consider nephrology evaluation if needed --Dyslipidemia; lipid-lowering medications. Low-cholesterol diet --Mild dysphagia, therapist recommended soft diet advised modified barium swallow a.m. --DVT prophylaxis with Lovenox D/C planning per case management History Interval history: Patient feels better no new complaints Hospitalist Physical - Constitutional Vitals: Temp Pulse Resp BP Pulse Ox 98.2 F 68 18 163/88 98 04/15/17 08:52 04/15/17 10:07 04/15/17 08:52 04/15/17 10:07 04/15/17 08:52 General appearance: Present: no acute distress, well-nourished - EENT Eyes: Present: PERRL, EOM intact - Neck Neck: Present: supple, normal ROM - Respiratory Respiratory effort: normal Respiratory: bilateral: diminished, negative: rales, rhonchi, wheezing - Cardiovascular Rhythm: regular Heart Sounds: Present: S1 & S2 - Extremities Extremities: no ischemia, pulses intact - Abdominal General gastrointestinal: soft, non-tender, non-distended, normal bowel sounds - Integumentary Integumentary: Present: clear, warm - Psychiatric Psychiatric: appropriate mood/affect, cooperative - Neurologic Neurologic: other (residual weakness) Results - Labs CBC & Chem 7: 04/12/17 18:23 04/15/17 06:35 Labs: Laboratory Last Values WBC 11.5 K/mm3 (4.5-11.0) H 04/12/17 18:23 RBC 3.94 M/mm3 (3.65-5.03) 04/12/17 18:23 Hgb 11.6 gm/dl (10.1-14.3) 04/12/17 18:23 Hct 34.4 % (30.3-42.9) 04/12/17 18:23 MCV 87 fl (79-97) 04/12/17 18:23 MCH 29 pg (28-32) 04/12/17 18:23 MCHC 34 % (30-34) 04/12/17 18:23 RDW 15.7 % (13.2-15.2) H 04/12/17 18:23 Plt Count 199 K/mm3 (140-440) 04/12/17 18:23 Add Manual Diff Complete 04/12/17 18:23 Total Counted 100 04/12/17 18:23 Seg Neuts % (Manual) 60.0 % (40.0-70.0) 04/12/17 18:23 Band Neutrophils % 0 % 04/12/17 18:23 Lymphocytes % (Manual) 34.0 % (13.4-35.0) 04/12/17 18:23 Reactive Lymphs % (Man) 0 % 04/12/17 18:23 Monocytes % (Manual) 5.0 % (0.0-7.3) 04/12/17 18:23 Eosinophils % (Manual) 1.0 % (0.0-4.3) 04/12/17 18:23 Basophils % (Manual) 0 % (0.0-1.8) 04/12/17 18:23 Metamyelocytes % 0 % 04/12/17 18:23 Myelocytes % 0 % 04/12/17 18:23 Promyelocytes % 0 % 04/12/17 18:23 Blast Cells % 0 % 04/12/17 18:23 Nucleated RBC % Not Reportable 04/12/17 18:23 Seg Neutrophils # Man 6.9 K/mm3 (1.8-7.7) 04/12/17 18:23 Band Neutrophils # 0.0 K/mm3 04/12/17 18:23 Lymphocytes # (Manual) 3.9 K/mm3 (1.2-5.4) 04/12/17 18:23 Abs React Lymphs (Man) 0.0 K/mm3 04/12/17 18:23 Monocytes # (Manual) 0.6 K/mm3 (0.0-0.8) 04/12/17 18:23 Eosinophils # (Manual) 0.1 K/mm3 (0.0-0.4) 04/12/17 18:23 Basophils # (Manual) 0.0 K/mm3 (0.0-0.1) 04/12/17 18:23 Metamyelocytes # 0.0 K/mm3 04/12/17 18:23 Myelocytes # 0.0 K/mm3 04/12/17 18:23 Promyelocytes # 0.0 K/mm3 04/12/17 18:23 Blast Cells # 0.0 K/mm3 04/12/17 18:23 WBC Morphology Not Reportable 04/12/17 18:23 Hypersegmented Neuts Not Reportable 04/12/17 18:23 Hyposegmented Neuts Not Reportable 04/12/17 18:23 Hypogranular Neuts Not Reportable 04/12/17 18:23 Smudge Cells Not Reportable 04/12/17 18:23 Toxic Granulation Not Reportable 04/12/17 18:23 Toxic Vacuolation Not Reportable 04/12/17 18:23 Dohle Bodies Not Reportable 04/12/17 18:23 Pelger-Huet Anomaly Not Reportable 04/12/17 18:23 Ralph Rods Not Reportable 04/12/17 18:23 Platelet Estimate Consistent w auto 04/12/17 18:23 Clumped Platelets 1+ 04/12/17 18:23 Plt Clumps, EDTA Not Reportable 04/12/17 18:23 Large Platelets Not Reportable 04/12/17 18:23 Giant Platelets Not Reportable 04/12/17 18:23 Platelet Satelliting Not Reportable 04/12/17 18:23 Plt Morphology Comment Not Reportable 04/12/17 18:23 RBC Morphology Not Reportable 04/12/17 18:23 Dimorphic RBCs Not Reportable 04/12/17 18:23 Polychromasia Not Reportable 04/12/17 18:23 Hypochromasia Not Reportable 04/12/17 18:23 Poikilocytosis 1+ 04/12/17 18:23 Anisocytosis 1+ 04/12/17 18:23 Microcytosis Not Reportable 04/12/17 18:23 Macrocytosis Not Reportable 04/12/17 18:23 Spherocytes Not Reportable 04/12/17 18:23 Pappenheimer Bodies Not Reportable 04/12/17 18:23 Sickle Cells Not Reportable 04/12/17 18:23 Target Cells Not Reportable 04/12/17 18:23 Tear Drop Cells Not Reportable 04/12/17 18:23 Ovalocytes Not Reportable 04/12/17 18:23 Helmet Cells Not Reportable 04/12/17 18:23 Muniz-Ronks Bodies Not Reportable 04/12/17 18:23 [place] Rings Not Reportable 04/12/17 18:23 [place] Cells Not Reportable 04/12/17 18:23 Bite Cells Not Reportable 04/12/17 18:23 Crenated Cell Not Reportable 04/12/17 18:23 Elliptocytes Not Reportable 04/12/17 18:23 Acanthocytes (Spur) Not Reportable 04/12/17 18:23 Rouleaux Not Reportable 04/12/17 18:23 Hemoglobin C Crystals Not Reportable 04/12/17 18:23 Schistocytes Not Reportable 04/12/17 18:23 Malaria parasites Not Reportable 04/12/17 18:23 Zheng Bodies Not Reportable 04/12/17 18:23 Hem Pathologist Commnt No 04/12/17 18:23 PT 12.5 Sec. (12.2-14.9) 04/12/17 18:23 INR 0.94 (0.87-1.13) 04/12/17 18:23 APTT 24.6 Sec. (24.2-36.6) 04/12/17 18:23 Thrombin Time 17.1 Sec. (15.1-19.6) 04/12/17 18:23 Sodium 140 mmol/L (137-145) 04/15/17 06:35 Potassium 3.9 mmol/L (3.6-5.0) 04/15/17 06:35 Chloride 100.8 mmol/L (98-107) 04/15/17 06:35 Carbon Dioxide 26 mmol/L (22-30) 04/15/17 06:35 Anion Gap 17 mmol/L 04/15/17 06:35 BUN 43 mg/dL (7-17) H 04/15/17 06:35 Creatinine 3.4 mg/dL (0.7-1.2) H 04/15/17 06:35 Estimated GFR 16 ml/min 04/15/17 06:35 BUN/Creatinine Ratio 12.64 % 04/15/17 06:35 Glucose 72 mg/dL (65-100) 04/15/17 06:35 POC Glucose 102 (70-105) 04/15/17 08:27 Calcium 8.5 mg/dL (8.4-10.2) 04/15/17 06:35 Magnesium 2.30 mg/dL (1.7-2.3) 04/14/17 05:29 Troponin T < 0.010 ng/mL (0.00-0.029) 04/12/17 18:23 Triglycerides 133 mg/dL (2-149) 04/13/17 05:37 Cholesterol 177 mg/dL (50-199) 04/13/17 05:37 LDL Cholesterol Direct 91 mg/dL (50-130) 04/13/17 05:37 HDL Cholesterol 60 mg/dL (40-59) H 04/13/17 05:37 Cholesterol/HDL Ratio 2.95 % 04/13/17 05:37
--- NOTE | 2017-04-15 13:06 | Progress Note ---
Assessment and Plan Impression: * Stage IV chronic kidney disease --Baseline SCr 2.3-2.5mg/dL * CVA * Hypertension * Type II diabetes mellitus Plan: * Continue current management * Neuro work up in progress * cr is worse, stop lasix * gentle ivfs * follow up ua and lytes * Continue antiHTN medications * Dose medications for renal function * Avoid potential nephrotoxins Subjective Date of service: 04/15/17 Principal diagnosis: [email or web address] Interval history: resting in bed today Objective - Exam Narrative Exam: General appearance: well-developed EENT: ATNC, other (poor dentition) Respiratory: Clear to Ascultation Heart: regular, S1S2 Gastrointestinal: Present: normal. Absent: tenderness, distended Neurologic: other (dysarthria) Psychiatric: cooperative - Vital Signs Vital signs: Vital Signs - 12hr 04/15/17 04/15/17 04/15/17 02:00 04:25 08:35 Temperature 98.3 F Pulse Rate 64 61 68 Respiratory 22 Rate Blood Pressure 156/69 Blood Pressure 142/87 [Right] O2 Sat by Pulse 96 Oximetry 04/15/17 04/15/17 04/15/17 08:52 10:00 10:07 Temperature 98.2 F Pulse Rate 65 68 Respiratory 18 Rate Blood Pressure 163/88 Blood Pressure 171/81 [Right] O2 Sat by Pulse 98 98 Oximetry - Lab 04/12/17 18:23 04/15/17 06:35 Most recent lab results Calcium 8.5 mg/dL (8.4-10.2) 04/15/17 06:35 Magnesium 2.30 mg/dL (1.7-2.3) 04/14/17 05:29
[2017-04-15] MEDS ORDERED: LASIX IV ONE (17:57)
[2017-04-15] MEDS: ZOCOR PO SCH (22:16)
[2017-04-16 00:07] LABS: Bilirubin,Urine NEG (Negative); Blood,Urine NEG (Negative); Ketones,Urine NEG (Negative); Leukocyte Esterase,Urine NEG (Negative); Nitrite,Urine NEG (Negative); Urobilinogen,Urine < 2.0 mg/dL (<2.0)
[2017-04-16 04:53] LABS: Basophils % (Auto) 0.3 % (0.0-1.8); Eosinophils % (Auto) 1.5 % (0.0-4.3); Hematocrit 30.3 % (30.3-42.9); Hemoglobin 10.3 gm/dl (10.1-14.3); Mean Corpuscular HGB Conc 34 % (30-34); Mean Corpuscular Hemoglobin 30 pg (28-32); Mean Corpuscular Volume 87 fl (79-97); Platelet Count 182 K/mm3 (140-440); Red Blood Count 3.47 M/mm3 (3.65-5.03); Red Cell Distribution Width 16.1 % (13.2-15.2); White Blood Count 7.1 K/mm3 (4.5-11.0)
[2017-04-16 05:08] LABS: BUN/Creatinine Ratio 12.42; Calcium 8.7 mg/dL (8.4-10.2); Chloride 100.1 mmol/L (98-107); Potassium 4.1 mmol/L (3.6-5.0)
[2017-04-16] MEDS: APRESOLINE PO SCH (05:35)
[2017-04-16] MEDS: CATAPRES PO SCH (07:50)
[2017-04-16 07:55] VITALS: BP 141/72
--- NOTE | 2017-04-16 09:01 | Progress Note ---
Hospitalist Physical - Constitutional Vitals: Temp Pulse Resp BP Pulse Ox 98.7 F 56 L 18 141/72 98 04/15/17 15:44 04/16/17 07:50 04/15/17 22:00 04/16/17 07:50 04/16/17 08:29 General appearance: Present: no acute distress, well-nourished Results - Labs CBC & Chem 7: 04/16/17 04:12 04/16/17 04:12 Labs: Laboratory Last Values WBC 7.1 K/mm3 (4.5-11.0) 04/16/17 04:12 RBC 3.47 M/mm3 (3.65-5.03) L 04/16/17 04:12 Hgb 10.3 gm/dl (10.1-14.3) 04/16/17 04:12 Hct 30.3 % (30.3-42.9) 04/16/17 04:12 MCV 87 fl (79-97) 04/16/17 04:12 MCH 30 pg (28-32) 04/16/17 04:12 MCHC 34 % (30-34) 04/16/17 04:12 RDW 16.1 % (13.2-15.2) H 04/16/17 04:12 Plt Count 182 K/mm3 (140-440) 04/16/17 04:12 Lymph % (Auto) 18.2 % (13.4-35.0) 04/16/17 04:12 [place] % (Auto) 8.4 % (0.0-7.3) H 04/16/17 04:12 Eos % (Auto) 1.5 % (0.0-4.3) 04/16/17 04:12 Baso % (Auto) 0.3 % (0.0-1.8) 04/16/17 04:12 Lymph # 1.3 K/mm3 (1.2-5.4) 04/16/17 04:12 Wood # 0.6 K/mm3 (0.0-0.8) 04/16/17 04:12 Eos # 0.1 K/mm3 (0.0-0.4) 04/16/17 04:12 Baso # 0.0 K/mm3 (0.0-0.1) 04/16/17 04:12 Add Manual Diff Complete 04/12/17 18:23 Total Counted 100 04/12/17 18:23 Seg Neutrophils % 71.6 % (40.0-70.0) H 04/16/17 04:12 Seg Neuts % (Manual) 60.0 % (40.0-70.0) 04/12/17 18:23 Band Neutrophils % 0 % 04/12/17 18:23 Lymphocytes % (Manual) 34.0 % (13.4-35.0) 04/12/17 18:23 Reactive Lymphs % (Man) 0 % 04/12/17 18:23 Monocytes % (Manual) 5.0 % (0.0-7.3) 04/12/17 18:23 Eosinophils % (Manual) 1.0 % (0.0-4.3) 04/12/17 18:23 Basophils % (Manual) 0 % (0.0-1.8) 04/12/17 18:23 Metamyelocytes % 0 % 04/12/17 18:23 Myelocytes % 0 % 04/12/17 18:23 Promyelocytes % 0 % 04/12/17 18:23 Blast Cells % 0 % 04/12/17 18:23 Nucleated RBC % Not Reportable 04/12/17 18:23 Seg Neutrophils # 5.1 K/mm3 (1.8-7.7) 04/16/17 04:12 Seg Neutrophils # Man 6.9 K/mm3 (1.8-7.7) 04/12/17 18:23 Band Neutrophils # 0.0 K/mm3 04/12/17 18:23 Lymphocytes # (Manual) 3.9 K/mm3 (1.2-5.4) 04/12/17 18:23 Abs React Lymphs (Man) 0.0 K/mm3 04/12/17 18:23 Monocytes # (Manual) 0.6 K/mm3 (0.0-0.8) 04/12/17 18:23 Eosinophils # (Manual) 0.1 K/mm3 (0.0-0.4) 04/12/17 18:23 Basophils # (Manual) 0.0 K/mm3 (0.0-0.1) 04/12/17 18:23 Metamyelocytes # 0.0 K/mm3 04/12/17 18:23 Myelocytes # 0.0 K/mm3 04/12/17 18:23 Promyelocytes # 0.0 K/mm3 04/12/17 18:23 Blast Cells # 0.0 K/mm3 04/12/17 18:23 WBC Morphology Not Reportable 04/12/17 18:23 Hypersegmented Neuts Not Reportable 04/12/17 18:23 Hyposegmented Neuts Not Reportable 04/12/17 18:23 Hypogranular Neuts Not Reportable 04/12/17 18:23 Smudge Cells Not Reportable 04/12/17 18:23 Toxic Granulation Not Reportable 04/12/17 18:23 Toxic Vacuolation Not Reportable 04/12/17 18:23 Dohle Bodies Not Reportable 04/12/17 18:23 Pelger-Huet Anomaly Not Reportable 04/12/17 18:23 Ralph Rods Not Reportable 04/12/17 18:23 Platelet Estimate Consistent w auto 04/12/17 18:23 Clumped Platelets 1+ 04/12/17 18:23 Plt Clumps, EDTA Not Reportable 04/12/17 18:23 Large Platelets Not Reportable 04/12/17 18:23 Giant Platelets Not Reportable 04/12/17 18:23 Platelet Satelliting Not Reportable 04/12/17 18:23 Plt Morphology Comment Not Reportable 04/12/17 18:23 RBC Morphology Not Reportable 04/12/17 18:23 Dimorphic RBCs Not Reportable 04/12/17 18:23 Polychromasia Not Reportable 04/12/17 18:23 Hypochromasia Not Reportable 04/12/17 18:23 Poikilocytosis 1+ 04/12/17 18:23 Anisocytosis 1+ 04/12/17 18:23 Microcytosis Not Reportable 04/12/17 18:23 Macrocytosis Not Reportable 04/12/17 18:23 Spherocytes Not Reportable 04/12/17 18:23 Pappenheimer Bodies Not Reportable 04/12/17 18:23 Sickle Cells Not Reportable 04/12/17 18:23 Target Cells Not Reportable 04/12/17 18:23 Tear Drop Cells Not Reportable 04/12/17 18:23 Ovalocytes Not Reportable 04/12/17 18:23 Helmet Cells Not Reportable 04/12/17 18:23 Muniz-Meh[place] Bodies Not Reportable 04/12/17 18:23 [place] Rings Not Reportable 04/12/17 18:23 [place] Cells Not Reportable 04/12/17 18:23 Bite Cells Not Reportable 04/12/17 18:23 Crenated Cell Not Reportable 04/12/17 18:23 Elliptocytes Not Reportable 04/12/17 18:23 Acanthocytes (Spur) Not Reportable 04/12/17 18:23 Rouleaux Not Reportable 04/12/17 18:23 Hemoglobin C Crystals Not Reportable 04/12/17 18:23 Schistocytes Not Reportable 04/12/17 18:23 Malaria parasites Not Reportable 04/12/17 18:23 Zheng Bodies Not Reportable 04/12/17 18:23 Hem Pathologist Commnt No 04/12/17 18:23 PT 12.5 Sec. (12.2-14.9) 04/12/17 18:23 INR 0.94 (0.87-1.13) 04/12/17 18:23 APTT 24.6 Sec. (24.2-36.6) 04/12/17 18:23 Thrombin Time 17.1 Sec. (15.1-19.6) 04/12/17 18:23 Sodium 141 mmol/L (137-145) 04/16/17 04:12 Potassium 4.1 mmol/L (3.6-5.0) 04/16/17 04:12 Chloride 100.1 mmol/L (98-107) 04/16/17 04:12 Carbon Dioxide 27 mmol/L (22-30) 04/16/17 04:12 Anion Gap 18 mmol/L 04/16/17 04:12 BUN 41 mg/dL (7-17) H 04/16/17 04:12 Creatinine 3.3 mg/dL (0.7-1.2) H 04/16/17 04:12 Estimated GFR 17 ml/min 04/16/17 04:12 BUN/Creatinine Ratio 12.42 % 04/16/17 04:12 Glucose 104 mg/dL (65-100) H 04/16/17 04:12 POC Glucose 87 (70-105) 04/16/17 07:50 Calcium 8.7 mg/dL (8.4-10.2) 04/16/17 04:12 Magnesium 2.30 mg/dL (1.7-2.3) 04/14/17 05:29 Troponin T < 0.010 ng/mL (0.00-0.029) 04/12/17 18:23 Triglycerides 133 mg/dL (2-149) 04/13/17 05:37 Cholesterol 177 mg/dL (50-199) 04/13/17 05:37 LDL Cholesterol Direct 91 mg/dL (50-130) 04/13/17 05:37 HDL Cholesterol 60 mg/dL (40-59) H 04/13/17 05:37 Cholesterol/HDL Ratio 2.95 % 04/13/17 05:37 Urine Color Straw (Yellow) 04/15/17 22:21 Urine Turbidity Clear (Clear) 04/15/17 22:21 Urine pH 6.0 (5.0-7.0) 04/15/17 22:21 Ur Specific [place] 1.006 (1.003-1.030) 04/15/17 22:21 Urine Protein 30 mg/dl mg/dL (Negative) 04/15/17 22:21 Urine Glucose (UA) Neg mg/dL (Negative) 04/15/17 22:21 Urine Ketones Neg mg/dL (Negative) 04/15/17 22:21 Urine Blood Neg (Negative) 04/15/17 22:21 Urine Nitrite Neg (Negative) 04/15/17 22:21 Urine Bilirubin Neg (Negative) 04/15/17 22:21 Urine Urobilinogen < 2.0 mg/dL (<2.0) 04/15/17 22:21 Ur Leukocyte Esterase Neg (Negative) 04/15/17 22:21 Urine WBC (Auto) 1.0 /HPF (0.0-6.0) 04/15/17 22:21 Urine RBC (Auto) 2.0 /HPF (0.0-6.0) 04/15/17 22:21 U Epithel Cells (Auto) 1.0 /HPF (0-13.0) 04/15/17 22:21 Amorphous Crystals 1+ 04/15/17 22:21 Hyaline Casts 2 /LPF 04/15/17 22:21 Urine Creatinine 45.7 mg/dL (0.1-20.0) H 04/15/17 Unknown Urine Sodium 53 mEq/L 04/15/17 Unknown
[2017-04-16] MEDS: PLAVIX PO SCH (09:14)
[2017-04-16] MEDS: GLUCOTROL PO SCH (09:15)
[2017-04-16] MEDS: LOVENOX SUB-Q SCH (09:16)
--- NOTE | 2017-04-16 11:04 | Progress Note ---
Assessment and Plan Impression: * Stage IV chronic kidney disease --Baseline SCr 2.3-2.5mg/dL * CVA * Hypertension * Type II diabetes mellitus Plan: * Continue current management * Neuro work up in progress * cr is stable today * gentle ivfs * follow up ua and lytes noted * Continue antiHTN medications * Dose medications for renal function * Avoid potential nephrotoxins Subjective Date of service: 04/16/17 Principal diagnosis: [email or web address] Interval history: resting in bed today Objective - Exam Narrative Exam: General appearance: well-developed EENT: ATNC, other (poor dentition) Respiratory: Clear to Ascultation Heart: regular, S1S2 Gastrointestinal: Present: normal. Absent: tenderness, distended Neurologic: other (dysarthria) Psychiatric: cooperative - Vital Signs Vital signs: Vital Signs - 12hr 04/16/17 04/16/17 04/16/17 05:35 07:50 08:29 Temperature Pulse Rate 60 56 L Respiratory Rate Blood Pressure 132/78 141/72 Blood Pressure [Right] O2 Sat by Pulse 98 Oximetry 04/16/17 09:05 Temperature 97.8 F Pulse Rate 52 L Respiratory 20 Rate Blood Pressure Blood Pressure 141/72 [Right] O2 Sat by Pulse 96 Oximetry - Lab 04/16/17 04:12 04/16/17 04:12 Most recent lab results Calcium 8.7 mg/dL (8.4-10.2) 04/16/17 04:12 Magnesium 2.30 mg/dL (1.7-2.3) 04/14/17 05:29 Urine Creatinine 45.7 mg/dL (0.1-20.0) H 04/15/17 Unknown Urine Sodium 53 mEq/L 04/15/17 Unknown
--- NOTE | 2017-04-16 12:28 | Discharge Summary ---
Providers - Providers Date of Admission: 04/12/17 22:08 Date of discharge: 04/16/17 Attending physician: JAYA MCCRAY 04/14/17 15:58 Consult to Physician [CONS] Routine Consulting Provider: CHAPIN WRIGHT Reason For Exam: acute on CKD Place consult to:: international marketing specialist Notified:: OFFICE Phone number called:: [phone] Was contact made?: Yes If yes, spoke with:: ADRYAN Time called:: 16:10 Primary care physician: EXCHANGE OPERATOR Hospitalization Condition: Stable Hospital course: --Acute CVA; with left-sided weakness Not a candidate for TPA, continue Aspirin, statin, supportive care, neurology evaluation Physical therapy occupational therapy, rehabilitation, speech therapy --Hypertension; closely monitor Maintain systolic blood pressures per stroke protocol When necessary medications --Acute versus acute on chronic kidney disease No previous creatinine level available, gentle hydration, close to monitor renal function, avoid nephrotoxic medications Consider nephrology evaluation if needed --Dyslipidemia; lipid-lowering medications. Low-cholesterol diet --Mild dysphagia, therapist recommended soft diet advised modified barium swallow a.m. Disposition: [id number]/[place]-06 HOME [facility] Core Measure Documentation - Palliative Care Palliative Care/ Comfort Measures: Not Applicable - Core Measures Any of the following diagnoses?: stroke - Stroke Discharge Requirements Statin for LDL = or >70 mg/dl on DC: Yes Anticoag for atrial fib/atrial flutter: Not Applicable (no afib/flutter) Antithrombotic for ischemic stroke: Yes Exam - Constitutional Vitals: Temp Pulse Resp BP Pulse Ox 97.8 F 52 L 20 141/72 96 04/16/17 09:05 04/16/17 09:05 04/16/17 09:05 04/16/17 09:05 04/16/17 09:05 Plan Activity: advance as tolerated, fall precautions Diet: low cholesterol, low salt, diabetic Special Instructions: physical therapy, occupational therapy Durable Medical Equipment Needed Upon Discharge: Walker-Rolling Follow up with: JC RIOS MD [Primary Care Provider] - 3-5 Days JAKUB INFANTE MD [Staff Physician] - 7 Days Prescriptions: Clopidogrel [Plavix] 75 mg PO QDAY #30 tablet hydrALAZINE [Apresoline TAB] 50 mg PO Q8HR #90 tablet Simvastatin [Zocor TAB] 40 mg PO QHS #30 tablet
--- NOTE | 2017-04-16 13:05 | Ultrasound Report ---
RENAL ULTRASOUND: 04/15/17 13:09:00 CLINICAL: Renal insufficiency. FINDINGS: High resolution ultrasound demonstrated normal nondilated renal collecting systems. Moderate diffuse increased echogenicity of the kidneys and moderate bilateral renal cortical irregularity. No renal mass or cysts. A 4 mm non-shadowing echogenic focus in the lower pole of the right kidney is consistent with a nonobstructive calculus. The right kidney measures 9.6 x 3.8 x 4.4-cm. The renal parenchyma measures 1.1-cm in thickness. The left kidney measures 9.5 x 4.4 x 3.4-cm. The renal parenchyma measures 1.2-cm in thickness. Normal moderately distended urinary bladder. IMPRESSION: Bilateral medical renal disease and no hydronephrosis. A 4 mm nonobstructive calculus in the lower pole the right kidney.
== END 2017-04-16 15:00 | disposition home health service (06) | DRG 65 ==
LOC: ED 17:20 → 4A 22:08 → CC2 04-15 08:26
PROVIDERS: ADMIT Internal Medicine; ATTEND Internal Medicine
PROC: 3E0234Z Introduction of Serum, Toxoid and Vaccine into Muscle, Percutaneous Approach (ICD-10-PCS; principal; 2017-04-13)
DX: I63.9 Cerebral infarction, unspecified (principal); N17.9 Acute kidney failure, unspecified; N18.4 Chronic kidney disease, stage 4 (severe); I69.354 Hemiplegia and hemiparesis following cerebral infarction affecting left non-dominant side; E78.5 Hyperlipidemia, unspecified; R13.10 Dysphagia, unspecified; Z23 Encounter for immunization; I12.9 Hypertensive chronic kidney disease with stage 1 through stage 4 chronic kidney disease, or unspecified chronic kidney disease; E11.22 Type 2 diabetes mellitus with diabetic chronic kidney disease; Z82.49 Family history of ischemic heart disease and other diseases of the circulatory system
CPT/HCPCS: 36415; 70450; 74230; 76770; 80048; 80061; 81001; 82570; 82962; 83735; 84300; 84484; 85007; 85025; 85610; 85670; 85730; 90686; 90732; 93005; 93010; 93306; 96374; G8978-GP; G8979-GP; G8987-GO; G8988-GO; G8996-GN; G8997-GN; J0360; J1650; J1940